=== PATIENT | male | born 1980 | race Caucasian/White ===

== ENCOUNTER 2021-05-20 10:56 | Outpatient (CLI) | payer OTHER, SELFPAY ==
--- NOTE | 2021-05-20 11:00 | ECG_ITS ---
Measurements Intervals [place] Rate: 84 P: 28 KS: 123 QRS: 17 QRSD: 93 T: 1 QT: 353 QTc: 418 Interpretive Statements SINUS RHYTHM BORDERLINE T WAVE ABNORMALITY- INFERIOR LEADS BASELINE ARTIFACT- I, II, III, AVR, AVL, AVF BORDERLINE ECG Electronically Signed On 05-20-2021 11:37:38 CDT by Sathya Nagy D.O.
[2021-05-20 11:57] LABS: Anion Gap 13 mmol/L (8-16); Blood Urea Nitrogen 12 mg/dL (9-20); Carbon Dioxide 28 mmol/L (22-30); Chloride 98 mmol/L (98-107); Estimated Glomerular Filt Rate > 60; Glucose 97 mg/dL (65-110); Potassium 3.6 mmol/L (3.4-5.0); Sodium 139 mmol/L (137-145)
== END 2021-05-20 10:57 | disposition home or self-care (01) ==
LOC: ANHSURGERY 11:00
PROVIDERS: Anesthesiology; PCP Family Medicine; Visit Provider Otolaryngology
DX: E78.2 Mixed hyperlipidemia (principal); I10 Essential (primary) hypertension; Z01.818 Encounter for other preprocedural examination; R94.31 Abnormal electrocardiogram [ECG] [EKG]
CPT/HCPCS: 36415; 80048; 93005

== ENCOUNTER 2021-05-23 02:35 | Day surgery (SDC) | payer OTHER, SELFPAY ==
[2021-05-16 11:21] VITALS: BMI 33.5
--- NOTE | 2021-05-22 08:09 | PM.IMHP ---
H&P: HPI History of Present Illness Date/Time: 05/22/21 08:09 Chief Complaint: Dysphagia, uvular hypertrophy, septal deviation, inferior turbinate hypertrophy, nasal obstruction, nasal congestion Narrative: 40-year-old male presents with of the aforementioned symptoms. No change in history no change in symptoms. Review of Systems Constitutional: Constitutional: Denies fatigue, Denies fever(s) and Denies lethargy Eyes: Eyes: Denies blurry vision and Denies change in vision ENT: Reports as per HPI Cardiovascular: Cardiovascular: Denies chest pain Respiratory: Respiratory: Denies cough Endocrine: Endocrine: Denies fatigue Hematologic/Lymphatic: Hematologic/Lymphatic: Denies easy bleeding, Denies easy bruising and Denies lymphadenopathy Allergic/Immunologic: Allergic/Immunologic: Denies seasonal rhinorrhea [facility] Family History Family History Father Alcohol drinking problem Hypertension Heart problem Cerebrovascular accident Mother Hypertension Sibling Alcohol drinking problem Hypertension Heart problem Social History Social History Smoking status: Never smoker Second hand tobacco smoke exposure: No Smoking end date: 09/06/15 Alcohol intake: current Substance use: never Gender identity (if verbalized by the patient): Male Spiritual care concerns: No Meds Home Medications and Allergies Home Medications Medication Instructions Recorded Confirmed Type atorvastatin 20 mg tablet 20 mg PO DAILY #90 tablet 08/13/20 05/16/21 Rx amlodipine 10 mg tablet See Rx Instructions .ROUTE 03/03/21 05/16/21 Rx .COMPLEX #90 tablet irbesartan 150 See Rx Instructions .ROUTE 03/27/21 05/16/21 Rx mg-hydrochlorothiazide 12.5 mg .COMPLEX #180 tablet tablet omeprazole 20 mg PO DAILY 05/16/21 05/16/21 History Allergies Allergy/AdvReac Type Severity Reaction Status Date / Time No Known Allergies Allergy Verified 05/16/21 11:19 Exam Const: General: cooperative, healthy appearing, comfortable, well developed and alert HENMT: Head: normal to inspection, normocephalic and atraumatic Ears: hearing grossly normal bilaterally, external ears normal, TM's normal bilaterally and EAC's normal General nose exam: Normal external nose present, Normal nares present and Other nasal findings present ( septal deviation inferior turbinate hypertrophy) Face and sinus: normal facial exam Mouth: Yes Normal oral and palatal mucosa present, Yes lip normal, Yes tongue normal, Yes oropharynx normal, Yes moist mucous membranes and Yes other ( uvular hypertrophy) Teeth and gingiva: abnormal dentition and gingiva normal Throat: posterior oropharynx normal, tonsils normal and uvula midline Eyes: General: appearance normal, both eyes and all related structures Periorbital: periorbital findings normal Eyelids: eyelids normal Conjunctivae: conjunctivae normal Sclera: sclerae normal Neck: Neck: normal visual inspection, full ROM and no lymphadenopathy Thyroid: thyroid normal Lymphatic: no lymphadenopathy noted Resp: Effort & Inspection: normal respiratory effort and able to speak in complete sentences Cardio: Jugular venous distension: no JVD Neuro: Cranial nerves: Yes CN's II-XII intact bilaterally Assessment and Plan Assessment and plan (1) Dysphagia: Code(s): R13.10 - Dysphagia, unspecified Status: Acute Assessment and Plan: plan is for the OR for endoscopic assisted septoplasty inferior turbinate submucosal wrist section with outfracture and uvulectomy. Total operative time 1.5-2 hours. The risks were discussed in great detail including bleeding infection blindness damage to surrounding structures septal perforation CSF leak brain damage need for further procedures failure to resolve symptoms. Patient voiced understanding and agreed. (2) Hypertrophy of both inferior nasa
--- NOTE | 2021-05-22 12:11 | WPDANESEPPF ---
Anes - Initial Pre Proc Eval Procedure: Operation Date: 05/23/21 07:30 Proposed Procedures p Endoscopic Septoplasty, - Link Nava MD s Bilateral Inferior Turbinectomy, Uvulectomy - Link Nava MD Date/Time: 05/22/21 12:11 Surgeon: Link Nava MD Pre Op Diagnosis: Septal Deviation, Dysphagia Patient Data Age: 40 Gender: M Height: 1.73 m Weight: 100 kg Allergies Allergy/AdvReac Type Severity Reaction Status Date / Time No Known Allergies Allergy Verified 05/16/21 11:19 Home Medications Medication Instructions Recorded Confirmed Type atorvastatin 20 mg tablet 20 mg PO DAILY #90 tablet 08/13/20 05/23/21 Rx amlodipine 10 mg tablet See Rx Instructions .ROUTE 03/03/21 05/23/21 Rx .COMPLEX #90 tablet irbesartan 150 See Rx Instructions .ROUTE 03/27/21 05/23/21 Rx mg-hydrochlorothiazide 12.5 mg .COMPLEX #180 tablet tablet omeprazole 20 mg PO DAILY 05/16/21 05/23/21 History Patient hx anesthesia problems: none Family hx anesthesia problems: none PMFSH Past Medical History Medical History (Updated 05/22/21 @ 12:12 by Wang Graves DO) Mixed hyperlipidemia PRAVIN (obstructive sleep apnea) non compliance with CPAP Primary hypertension Family History Family History Father Alcohol drinking problem Hypertension Heart problem Cerebrovascular accident Mother Hypertension Sibling Alcohol drinking problem Hypertension Heart problem Social History Social History Smoking status: Former smoker Second hand tobacco smoke exposure: No Smoking end date: 09/06/15 Alcohol intake: current Substance use: never Living arrangements: alone Gender identity (if verbalized by the patient): Male Spiritual care concerns: No Anes - Eval Final PreProcedure Day of Procedure 05/22/21 12:11 Patient weight: obese Heart: regular rate and rhythm Lungs: clear to auscultation and normal air movement Airway: Mallampati scale class 1 Neurological: alert and oriented Last oral intake: >/= 8 hours ASA classification: III Emergent: no Anesthetic plan: proceed Anesthesia type and monitoring: general ETT and standard monitoring Informed Consent: The patient's anesthetic plan and its attendant risks and benefits were discussed with the patient/family/POA. Questions were solicited and answers provided to the satisfaction of the patient/family/POA.
[2021-05-23] VITALS (11 sets, daily range): BP systolic 109–147; BP diastolic 76–98; PULSE 84–106; RESP 10–20; TEMP 36.4–37.1; O2SAT 94–100; BMI 33.9
[2021-05-23] MEDS: ACETAMINOPHEN 500 MG TABLET 1000 MG PO (06:22)
--- NOTE | 2021-05-23 07:08 | WPDHPUPDATE1 ---
History and Physical Update Update Date/Time: 05/23/21 07:08 History and Physical has been reviewed, including an updated exam of the patient. There are NO changes in the patient's condition. Risks, benefits, and alternatives have been discussed and questions answered. Patient agrees to proceed with procedure.
[2021-05-23] MEDS: LACTATED RINGERS 1,000 ML 30 ML IV CONT (07:09)
[2021-05-23] MEDS: ceFAZolin 2 GM/D5W 50 ML 2 GM/50 ML BAG IVPB (07:22)
[2021-05-23] MEDS: OXYMETAZOLINE HCL 0.05% NAS 15 ML BTL (*BKC) 1 SPRAY NASAL (07:30)
[2021-05-23] MEDS: LIDO 1%/EPINEPHRINE 1:100,000 50 ML VIAL INFILTRATE (07:36)
[2021-05-23] MEDS: fentaNYL CITRATE INJ (*CRX) 100 MCG/2 ML VIAL 25 MCG IV PUSH ×4 (08:56→09:19)
--- NOTE | 2021-05-23 08:59 | P.OP_ITS ---
Procedure Note - Detailed Date of Procedure 05/23/21 Pre-op Diagnosis Septal Deviation, Dysphagia, inferior turbinate hypertrophy, nasal obstruction, nasal congestion, uvular hypertrophy Post-op Diagnosis same Procedure Performed 1. Endoscopic assisted septoplasty 2. Inferior turbinate submucosal resection with outfracture 3. Uvulectomy Surgeon Link Nava MD Anesthesia general Indications See above Findings Septal deviation, inferior turbinate hypertrophy, uvular hypertrophy Description of Procedure The patient was correctly identified and consent was verified in the preoperative holding area. The patient was then brought to the operating room and a time-out was performed. General anesthesia was induced and endotracheal tube was secured the patient's airway and taped to the left lower lip. Afrin-soaked pledgets were then placed in the bilateral nasal passages and allowed to sit for 5 minutes before being removed. Patient was then prepped and draped for the aforementioned procedure. Second time-out was performed. Under endoscopic guidance the bilateral nasal passages were reviewed with the aforementioned findings noted. 10 cc of 1% lidocaine with 1 100,000 parts epinephrine was injected in the bilateral nasal septum as well as anterior inferior turbinates. [place] incision was made on the left side using a 15 blade. Mucoperichondrial flap was elevated using a 7 [place] suction. The septum was then crossed over using a 15 blade and caudal elevator right-sided mucoperichondrial flap was elevated very small perforation on the right side was noted. Deviated nasal septum was removed using Eduardo Payan forceps osteotome and deep blade. The septum was closed anteriorly using 5 interrupted 5 0 fast gut sutures. The bilateral inferior turbinates were entered anteriorly using a microdebrider with 2 mm turbinate blade they were debrided in the submucosal plane mulberry tips were debrided posteriorly and cauterized using suction Bovie electrocautery at a setting of 10. Bleeding was excellent and hemostasis was adequate. The bilateral inferior turbinates were then outfractured. The nasal airway was much improved and there were no complications. Garzon Garzon splints were then placed and sutured anteriorly using a 3-0 mattress nylon suture. The bed was then rotated endotracheal tube tube moved to the midline and [place] mouth gag placed revealing a very large uvula. This was resected using needle-tip Bovie electrocautery at a setting of 10. A very small amount of the adjacent soft palate was also resected it was then sutured using 4-0 interrupted Vicryl sutures 3 in total. This marked the end the procedure. Care the patient was turned over to Anesthesiology. I performed all dictated portions. Blood loss approximately 5 cc. Estimated Blood Loss 5 Drains No Packing No Pathology none sent Complications No immediate complications Condition stable Disposition PACU
[2021-05-23] MEDS: oxyCODONE HCL (*CRX) 5 MG TAB IR PO (09:45)
== END 2021-05-23 10:30 | disposition home or self-care (01) ==
PROVIDERS: PCP Family Medicine; Visit Provider Otolaryngology
PROC: (CPT 30520; principal; 2021-05-23 07:30)
PROC: (CPT 30140; 2021-05-23 07:30)
DX: J34.2 Deviated nasal septum (principal); J34.3 Hypertrophy of nasal turbinates; R13.10 Dysphagia, unspecified; K13.79 Other lesions of oral mucosa; J34.89 Other specified disorders of nose and nasal sinuses; G47.33 Obstructive sleep apnea (adult) (pediatric); I10 Essential (primary) hypertension; E78.2 Mixed hyperlipidemia; Z87.891 Personal history of nicotine dependence; E66.9 Obesity, unspecified; Z68.33 Body mass index [BMI] 33.0-33.9, adult
CPT/HCPCS: 30140; 30520; 42140; 36415; 80048; 93005; A9270; J0330; J0690; J1100; J2250; J2405; J2704; J3010; J7120

== ENCOUNTER 2022-09-11 01:47 | Day surgery (SDC) | payer OTHER, SELFPAY ==
[2022-08-28 10:54] VITALS: BMI 35.5
--- NOTE | 2022-09-10 19:44 | PM.HPGS ---
History of Present Illness History of Present Illness Consent: Risks, benefits, and alternatives have been discussed and questions answered. Patient agrees to proceed with procedure. Chief complaint: melena Narrative: Matthew Grewal is a 42 year old male wiith blood in stool . He sees blood about once a month and has always somewhat it was hemorrhoidal. Another problems that his stools have been on formed for quite a while particularly the last 2 months or so. During that period time he also has lost nearly 20 lb. He has no abdominal pain. He is not aware of any family history of celiac disease or inflammatory bowel disease. Review of Systems Review of Systems: All systems reviewed & are unremarkable except as noted in HPI and below PMFSH Past Medical History Medical History Mixed hyperlipidemia PRAVIN (obstructive sleep apnea) non compliance with CPAP Primary hypertension Surgical History Surgical History S/P correction of deviated nasal septum Family History Family History Father Alcohol drinking problem Hypertension Heart problem Cerebrovascular accident Mother Hypertension Sibling Alcohol drinking problem Hypertension Heart problem Social History Social History Smoking status: Never smoker Second hand tobacco smoke exposure: No Smoking end date: 09/06/15 Alcohol intake: current Drinks per week: 20 Substance use: never Substance use type: does not use Lack of Transportation: No Lack of Food: Never True Current Housing: I Have Housing Concerned About Future Housing: No Difficulty Paying Gas/Electric Bills: No Difficulty Paying for Meds: No Currently Unemployed: No Education: Bachelor's Degree Difficulty w/ Childcare or Family Care: No Living arrangements: with family Gender identity (if verbalized by the patient): Male Spiritual care concerns: No Meds Home Medications and Allergies Home Medications Medication Instructions Recorded Confirmed Type omeprazole 20 mg capsule,delayed 20 mg PO DAILY 05/16/21 09/11/22 History release atorvastatin 20 mg tablet See Rx Instructions .Route 04/20/22 09/11/22 Rx .COMPLEX #90 tabs irbesartan 150 See Rx Instructions .Route 04/20/22 09/11/22 Rx mg-hydrochlorothiazide 12.5 mg .COMPLEX #180 tabs tablet amlodipine 10 mg tablet See Rx Instructions .Route 07/10/22 09/11/22 Rx .COMPLEX #90 tabs Allergies Allergy/AdvReac Type Severity Reaction Status Date / Time No Known Allergies Allergy Verified 09/11/22 06:47 Exam Resp: Auscultation: clear to auscultation bilaterally Cardio: Rate: regular rate Rhythm: regular rhythm GI: GI Palp: Yes Soft to palpation and No Tenderness to palpation present (GI) Assessment and Plan Assessment and plan (1) Blood in stool: Code(s): K92.1 - Melena Status: Acute Assessment and Plan: Colonoscopy with possible biopsy or polypectomy or cautery or injection of substances.
[2022-09-11 06:48] VITALS: BP 133/92; PULSE 91; RESP 16; TEMP 36.6; O2SAT 99; BMI 35.6
[2022-09-11] MEDS: LACTATED RINGERS 1,000 ML 150 ML IV CONT (06:59)
--- NOTE | 2022-09-11 07:30 | WPDANESEPPF ---
Anes - Initial Pre Proc Eval Procedure: Operation Date: 09/11/22 08:00 Proposed Procedures p Colonoscopy - Srinivas Harris MD Date/Time: 09/11/22 07:30 Surgeon: Srinivas Harris MD Pre Op Diagnosis: melena Patient Data Age: 42 Gender: M Height: 1.73 m Weight: 106.3 kg Last Vital Signs Temp 98 F 09/11/22 06:48 Pulse 91 09/11/22 06:48 Resp 16 09/11/22 06:48 BP 133/92 H 09/11/22 06:48 Pulse Ox 99 09/11/22 06:48 O2 Del Method Room Air 09/11/22 06:48 Allergies Allergy/AdvReac Type Severity Reaction Status Date / Time No Known Allergies Allergy Verified 09/11/22 06:47 Home Medications Medication Instructions Recorded Confirmed Type omeprazole 20 mg capsule,delayed 20 mg PO DAILY 05/16/21 09/11/22 History release atorvastatin 20 mg tablet See Rx Instructions .Route 04/20/22 09/11/22 Rx .COMPLEX #90 tabs irbesartan 150 See Rx Instructions .Route 04/20/22 09/11/22 Rx mg-hydrochlorothiazide 12.5 mg .COMPLEX #180 tabs tablet amlodipine 10 mg tablet See Rx Instructions .Route 07/10/22 09/11/22 Rx .COMPLEX #90 tabs Patient hx anesthesia problems: none Family hx anesthesia problems: none Results Review: All pre-operative results and documents have been reviewed as part of the pre-operative evaluation. [facility] Past Medical History Medical History Mixed hyperlipidemia PRAVIN (obstructive sleep apnea) non compliance with CPAP Primary hypertension Surgical History Surgical History S/P correction of deviated nasal septum Family History Family History Father Alcohol drinking problem Hypertension Heart problem Cerebrovascular accident Mother Hypertension Sibling Alcohol drinking problem Hypertension Heart problem Social History Social History Smoking status: Never smoker Second hand tobacco smoke exposure: No Smoking end date: 09/06/15 Alcohol intake: current Drinks per week: 20 Substance use: never Substance use type: does not use Lack of Transportation: No Lack of Food: Never True Current Housing: I Have Housing Concerned About Future Housing: No Difficulty Paying Gas/Electric Bills: No Difficulty Paying for Meds: No Currently Unemployed: No Education: Bachelor's Degree Difficulty w/ Childcare or Family Care: No Living arrangements: with family Gender identity (if verbalized by the patient): Male Spiritual care concerns: No Anes - Eval Final PreProcedure Day of Procedure 09/11/22 07:30 Patient weight: obese Heart: regular rate and rhythm Lungs: clear to auscultation Airway: Mallampati scale class II Neurological: alert and oriented Last oral intake: >/= 8 hours ASA classification: III Emergent: no Anesthetic plan: proceed Anesthesia type and monitoring: general GIVS and standard monitoring Results Review: All pre-operative results and documents have been reviewed as part of the pre-operative evaluation. Informed Consent: The patient's anesthetic plan and its attendant risks and benefits were discussed with the patient/family/POA. Questions were solicited and answers provided to the satisfaction of the patient/family/POA.
[2022-09-11] MEDS: SIMETHICONE ORAL SUSPENSION 20 MG/0.3 ML 30 ML BOTTLE 0.6 ML IRRIGATION (08:04)
[2022-09-11 08:12] VITALS: BP 82/53; PULSE 93; RESP 19; O2SAT 97
[2022-09-11 08:22] VITALS: BP 98/61; PULSE 83; RESP 15; O2SAT 98
[2022-09-11 08:32] VITALS: BP 102/66; PULSE 79; RESP 16; O2SAT 98
== END 2022-09-11 08:40 | disposition home or self-care (01) ==
PROVIDERS: PCP Family Medicine; Visit Provider Internal Medicine Gastroenterology
PROC: 0DJD8ZZ Inspection of Lower Intestinal Tract, Via Natural or Artificial Opening Endoscopic (ICD-10-PCS; CPT 45378; principal; 2022-09-11 08:00)
DX: K92.1 Melena (principal); R19.4 Change in bowel habit; K64.8 Other hemorrhoids; E78.2 Mixed hyperlipidemia; G47.33 Obstructive sleep apnea (adult) (pediatric); I10 Essential (primary) hypertension; E66.9 Obesity, unspecified; Z68.35 Body mass index [BMI] 35.0-35.9, adult
CPT/HCPCS: 45378; J2704; J7120

== ENCOUNTER 2023-11-04 08:08 | Outpatient (CLI) | payer BC, SELFPAY ==
[2023-11-04 12:40] LABS: Alanine Aminotransferase 120 U/L (6-50); Albumin Level 4.6 g/dL (3.5-5.1); Alkaline Phosphatase 117 U/L (38-126); Anion Gap 8 mmol/L (8-16); Aspartate Amino Transferase 125 U/L (17-59); Blood Urea Nitrogen 12 mg/dL (9-20); Calcium 9.8 mg/dL (8.4-10.2); Carbon Dioxide 30 mmol/L (22-30); Chloride 101 mmol/L (98-107); Cholesterol 198 mg/dL (0-200); Estimated Glomerular Filt Rate > 60; Glucose 112 mg/dL (65-110); HDL Direct 31 mg/dL; Potassium 3.7 mmol/L (3.4-5.0); Sodium 139 mmol/L (137-145); Triglycerides 248 mg/dL (<150)
[2023-11-04 12:51] LABS: LDL Cholesterol Direct 126 mg/dL
[2023-11-04 13:21] LABS: Hemoglobin A1C 6.2 % (<5.7)
== END 2023-11-04 08:09 | disposition home or self-care (01) ==
LOC: ANHGOSHLAB 08:10
PROVIDERS: PCP Family Medicine; Visit Provider Nurse Practitioner
DX: E78.2 Mixed hyperlipidemia (principal); R73.01 Impaired fasting glucose
CPT/HCPCS: 36415; 80053; 80061; 83036

== ENCOUNTER 2024-09-22 08:22 | Outpatient (CLI) | payer OTHER, SELFPAY ==
[2024-09-22 17:48] LABS: Hematocrit 45.7 % (42.0-52.0); Hemoglobin 15.1 g/dL (14.0-18.0); Mean Corpuscular Hemoglobin 30.8 pg (26-34); Mean Corpuscular Volume 93.1 fl (80-100); Mean Platelet Volume 11.2 fl (7.4-10.4); Platelet Count Result 208 k/mm3 (150-375); Red Blood Count 4.91 M/mm3 (4.6-6.20); Red Cell Distribution Width 13.8 % (11.5-14.5); White Blood Count 6.4 K/mm3 (4.5-10.0)
[2024-09-22 18:02] LABS: Alanine Aminotransferase 116 U/L (6-50); Albumin Level 4.4 g/dL (3.5-5.1); Alkaline Phosphatase 67 U/L (38-126); Anion Gap 9 mmol/L (4-12); Aspartate Amino Transferase 98 U/L (17-59); Blood Urea Nitrogen 10 mg/dL (9-20); Calcium 9.2 mg/dL (8.4-10.2); Carbon Dioxide 27 mmol/L (22-30); Chloride 103 mmol/L (98-107); Cholesterol 289 mg/dL (0-200); Estimated Glomerular Filt Rate > 60; Glucose 78 mg/dL (65-110); HDL Direct 40 mg/dL; Potassium 3.9 mmol/L (3.4-5.0); Sodium 139 mmol/L (137-145); Triglycerides 100 mg/dL (<150)
[2024-09-22 18:14] LABS: LDL Cholesterol Direct 213 mg/dL
[2024-09-22 20:12] LABS: Hemoglobin A1C 4.9 % (<5.7)
== END 2024-09-22 08:23 | disposition home or self-care (01) ==
LOC: ANHGOSHLAB 08:25
PROVIDERS: PCP Family Medicine; Visit Provider Family Medicine
DX: R73.03 Prediabetes (principal); R74.8 Abnormal levels of other serum enzymes; R73.01 Impaired fasting glucose; I10 Essential (primary) hypertension; E78.2 Mixed hyperlipidemia; E66.9 Obesity, unspecified; Z68.33 Body mass index [BMI] 33.0-33.9, adult
CPT/HCPCS: 36415; 80053; 80061; 82248; 83036; 84443; 85027